=== PATIENT | male | born 1990 | race Caucasian/White ===

== ENCOUNTER 2024-11-09 16:32 | Outpatient (CLI) | payer MEDICARE, MEDICAID ==
[2024-11-09 17:08] VITALS: PULSE 103; RESP 15; O2SAT 97
== END 2024-11-09 23:59 | disposition home or self-care (01) ==
LOC: RT 16:32
PROVIDERS: ATTEND General Practice
DX: R06.83 Snoring (principal)
CPT/HCPCS: 94010; 94760